=== PATIENT | female | born 1970 | race Two or more races ===

== ENCOUNTER 2020-06-06 17:06 | Emergency (ER) | payer SELFPAY ==
[~2020-06-06] VITALS: Ht 154.9 cm; Wt 77.0 kg
[2020-06-06 17:24] VITALS: BP 140/63
[2020-06-06] MEDS ORDERED: IBUPROFEN 200 MG TABLET. PO ONE (17:45)
[2020-06-06] MEDS ORDERED: DEXAMETHASONE 4 MG TABLET PO ONE (17:45)
--- NOTE | 2020-06-06 18:07 | RAD ---
AP chest. HISTORY: Chest pain, Covid-19 positive AP view was taken of the chest. There are hazy bilateral infiltrates consistent with pneumonia. Heart is normal in size. There is no pleural effusion. IMPRESSION: 1. Bilateral hazy infiltrates. Electronically signed by: Conor Eastman MD (06/06/2020 6:04 PM) [facility]
[2020-06-06] MEDS ORDERED: AZIT250T6 PO (18:17)
[2020-06-06] MEDS ORDERED: ALBU2.5V8 INH (18:17)
[2020-06-06] MEDS ORDERED: METH4TAB2 PO (18:17)
--- NOTE | 2020-06-06 18:18 | PHYS DOC ---
Past Medical History Past Medical History: Diabetes-Type II Past Surgical History: No Surgical History Smoking Status: Never Smoker Alcohol Use: None General Adult EDM: Chief Complaint: SORE THROAT HPI: HPI: Patient is a 50 year old female who presents with Covid symptoms of cough, chest pain, body aches, fever, shortness of breath for last 9 days. Patient tested positive for Covid this past Friday. Patient is being taking only Tylenol. Patient states she is not taking any other medications. She is Vietnamese-speaking and her daughter interprets for her. Patient is rating her overall pain a 8 out of 10. Patient denies abdominal pain, nausea, vomiting, diarrhea, constipation, dizziness, headache, vision changes, focal weakness, syncope. Review of Systems: Review of Systems: Constitutional: + fever or +chills. [] Eyes: Denies change in visual acuity. [] HENT: Denies nasal congestion or sore throat. [] Respiratory: + cough or +shortness of breath. [] Cardiovascular: +chest pain or denies edema. [] GI: Denies abdominal pain, +nausea, +vomiting, denies bloody stools or diarrhea. [] : Denies dysuria. [] Musculoskeletal: +Generalized bodyaches, denies back pain or joint pain. [] Integument: Denies rash. [] Neurologic: Denies headache, focal weakness or sensory changes. [] Endocrine: Denies polyuria or polydipsia. [] Lymphatic: Denies swollen glands. [] Psychiatric: Denies depression or anxiety. [] Heart Score: Risk Factors: Risk Factors: DM, Current or recent (<one month) smoker, HTN, HLP, family history of CAD, obesity. Risk Scores: Score 0 - 3: 2.5% MACE over next 6 weeks - Discharge Home Score 4 - 6: 20.3% MACE over next 6 weeks - Admit for Clinical Observation Score 7 - 10: 72.7% MACE over next 6 weeks - Early Invasive Strategies Current Medications: Current Medications Medications (Trade) Dose Ordered Sig/Valentin Start Time Stop Time Status Last Admin Dose Admin Dexamethasone (Decadron) 10 mg 1X ONCE 06/06/20 17:45 06/06/20 17:47 DC 06/06/20 18:01 10 MG Ibuprofen (Motrin) 600 mg 1X ONCE 06/06/20 17:45 06/06/20 17:47 DC 06/06/20 18:00 600 MG Allergies: Allergies: Allergies Coded Allergies Type Severity Reaction Last Updated Verified No Known Drug Allergies 06/06/20 No Physical Exam: PE: Constitutional: Well developed, well nourished, no acute distress, non-toxic appearance. [] HENT: Normocephalic, atraumatic, bilateral external ears normal, oropharynx moist, no oral exudates, nose normal. [] Eyes: PERRLA, EOMI, conjunctiva normal, no discharge. [] Neck: Normal range of motion, no tenderness, supple, no stridor. [] Cardiovascular:Heart rate regular rhythm, no murmur [] Lungs & Thorax: Bilateral upper breath sounds clear and lower diminished to auscultation [] Abdomen: Bowel sounds normal, soft, no tenderness, no masses, no pulsatile masses. [] Skin: Warm, dry, no erythema, no rash. [] Back: No tenderness, no CVA tenderness. [] Extremities: No tenderness, no cyanosis, no clubbing, ROM intact, no edema. [] Neurologic: Alert and oriented X 3, normal motor function, normal sensory function, no focal deficits noted. [] Psychologic: Affect normal, judgement normal, mood normal. [] Current Patient Data: Vital Signs: Vital Signs Date Time Temp Pulse Resp B/P (MAP) Pulse Ox O2 Delivery O2 Flow Rate FiO2 06/06/20 17:24 98.4 85 16 140/63 (88) 97 Room Air 98.4 EKG: EKG: [] Radiology/Procedures: Radiology/Procedures: [] Impression: [facility] [address] [place], [place] [id number] IMAGING REPORT Signed PATIENT: PAT CRUZ ACCOUNT: [id number] : 1970 LOCATION: ER AGE: 50 SEX: F EXAM STATUS: REG ER ORD. PHYSICIAN: GE KENDRICK APRN REASON: CHEST PAIN, COVID + PROCEDURE: PORTABLE CHEST 1V AP chest. HISTORY: Chest pain, Covid-19 positive AP view was taken of the chest. There are hazy bilateral infiltrates consistent with pneumonia. Heart is normal in size. There is no pleural effusion. IMPRESSION: 1. Bilateral hazy infiltrates. Electronically signed by: Conor Leon MD (06/06/2020 6:04 PM) [facility] DICTATED and SIGNED BY: CONOR LEON MD DATE: 06/06/20 [id number] 0 Course & Med Decision Making: Course & Med Decision Making Pertinent Labs and Imaging studies reviewed. (See chart for details) See HPI. Alert and oriented x4. Speaks in full complete sentences. Ambulatory with a steady gait. Skin pink warm and dry. Vital signs within normal limits. Lungs are clear to auscultation upper lobes and diminished in lower lobes. No extremity edema. Patient is given dexamethasone and ibuprofen in the ED. [] Dragon Disclaimer: Dragon Disclaimer: This electronic medical record was generated, in whole or in part, using a voice recognition dictation system. Departure Departure Impression: Primary Impression: COVID-19 Additional Impressions: Pneumonia Qualified Codes: J18.9 - Pneumonia, unspecified organism Body aches Disposition: 01 OR HOME SELF CARE/HOMELESS Condition: STABLE Referrals: NO PCP (PCP) Patient Instructions: Pneumonia, Adult Additional Instructions: Drink plenty of fluids. Take ibuprofen or Tylenol regularly to keep fever down and help with pain. Take medication as prescribed and with food. If you are unable to keep down any fluids or have severe shortness of breath return to the emergency room. Quarantine and rest as much as possible. Scripts Albuterol Sulfate (PROAIR HFA INHALER) 8.5 Gm Hfa.aer.ad 1 PUFF INH PRN Q6HRS PRN for SHORTNESS OF BREATH, #1 INHALER 0 Refills Prov: GE KENDRICK APRN 06/06/20 Azithromycin (AZITHROMYCIN TABLET) 250 Mg Tablet 1 PKG PO UD for 5 Days, #6 TAB 0 Refills 2 the first day followed by 1 for days 2-5 Prov: GE KENDRICK APRN 06/06/20 Methylprednisolone (MEDROL) 4 Mg Tab.ds.pk 1 PKG PO UD, #1 PKG Prov: GE KENDRICK APRN 06/06/20 GE KENDRICK APRN Jun 06, 2020 18:18
== END 2020-06-06 18:34 | disposition home or self-care (01) ==
LOC: ER 17:06
DX: U07.1 COVID-19 (principal); J18.9 Pneumonia, unspecified organism; M79.10 Myalgia, unspecified site; E11.9 Type 2 diabetes mellitus without complications
CPT/HCPCS: 71045; 99283